=== PATIENT | female | born 1945 | race Caucasian/White ===

== ENCOUNTER 2017-09-22 07:23 | Day surgery (SDC) | payer OTHER ==
[~2017-09-22 07:23] MED LIST: DIAZEPAM 5 MG TAB PO; DIPHENHYDRAMINE 50 MG CAP PO; FAMOTIDINE 20 MG TAB PO; SOD CHLORIDE 0.45% 1,000 ML IV
[2017-09-22 08:15] LABS: ADD MAN DIFF? NO
[2017-09-22 08:18] LABS: BASOPHILS % 0.4 % (0.0-2.0); EOSINOPHILS # 0.2 10^3/ul (0.0-0.5); EOSINOPHILS % 2.3 % (0.0-7.0); HEMATOCRIT 41.7 % (37.0-47.0); HEMOGLOBIN 13.9 g/dl (12.0-16.0); LYMPHOCYTES # 1.7 10^3/ul (0.8-2.9); LYMPHOCYTES % 22.2 % (15.0-51.0); MEAN CORPUSCULAR HEMOGLOBIN 31.2 pg (29.0-33.0); MEAN CORPUSCULAR HGB CONC 33.3 g/dl (32.0-37.0); MEAN CORPUSCULAR VOLUME 93.5 fl (82.0-101.0); MEAN PLATELET VOLUME 10.4 fl (7.4-10.4); MONOCYTE # 0.4 10^3/ul (0.3-0.9); MONOCYTES % 5.2 % (0.0-11.0); NEUTROPHIL # 5.4 10^3/ul (1.6-7.5); NEUTROPHILS % 69.5 % (39.0-77.0); PLATELET COUNT 241 10^3/UL (140-415); RED BLOOD COUNT 4.46 10^6/ul (4.20-5.40); RED CELL DISTRIBUTION WIDTH 13.2 % (11.5-14.5)
[2017-09-22 08:18] LABS: WHITE BLOOD COUNT 7.7 10^3/ul (4.8-10.8)
[2017-09-22 08:36] LABS: INR 1.01; PROTIME 13.4 Sec (11.9-14.9)
[2017-09-22 08:41] LABS: ANION GAP 14 (8-16); CARBON DIOXIDE 31 mmol/L (21-31); CHLORIDE 100 mmol/L (97-110); CHOLESTEROL 187 mg/dl (100-200); GLUCOSE 307 mg/dl (70-220); HDL CHOLESTEROL 46 mg/dl (33-92); LDL CHOLESTEROL,CALCULATED 106 mg/dl; TRIGLYCERIDES 174 mg/dl (0-149)
[2017-09-22 08:44] LABS: BLOOD UREA NITROGEN 14 mg/dl (7-20); CALCIUM 8.9 mg/dl (8.4-10.2); CREATININE 0.59 mg/dl (0.44-1.00); POTASSIUM 4.9 mmol/L (3.5-5.1); SODIUM 140 mmol/L (135-144)
[2017-09-22] MEDS ORDERED: NITROGLYCERIN (IC) 100 MCG/ML INJ (08:50)
[2017-09-22] MEDS ORDERED: HEPARIN 1000 UNITS/ML 10 ML INJ (08:50)
[2017-09-22] MEDS ORDERED: VERAPAMIL 5 MG INJ (08:50)
[2017-09-22] MEDS ORDERED: HEPARIN 1000 UNITS/NS (A-LINE) 0 ML (08:50)
[2017-09-22] MEDS ORDERED: MIDAZOLAM 1 MG/ML 2 ML INJ (08:51)
[2017-09-22] MEDS ORDERED: LIDOCAINE 1% (MDV) 20 ML INJ (09:34)
[2017-09-22] MEDS ORDERED: SOD CHLORIDE 0.9% 1,000 ML IV (10:08)
[2017-09-22] MEDS ORDERED: IODIXANOL LOCM 100 ML BTL (10:15)
[2017-09-22] MEDS ORDERED: morphine 2 MG INJ IV (10:30)
[2017-09-22] MEDS ORDERED: ONDANSETRON 4 MG INJ IV (10:30)
[2017-09-22] MEDS ORDERED: AL HYDROX/MG HYDROX/SIMETH 30 ML CUP PO (10:30)
[2017-09-22] MEDS ORDERED: ACETAMINOPHEN 325 MG TAB PO (10:30)
== END 2017-09-22 17:35 | disposition home or self-care (01) ==
LOC: SDS 07:23
DX: I25.10 Atherosclerotic heart disease of native coronary artery without angina pectoris (principal); J44.9 Chronic obstructive pulmonary disease, unspecified; I10 Essential (primary) hypertension; E78.5 Hyperlipidemia, unspecified; E11.9 Type 2 diabetes mellitus without complications
CPT/HCPCS: 71045; 80048; 80061; 82962; 85025; 85610; 85730; 93005; 93458